=== PATIENT | male | born 1995 | race Caucasian/White ===

== ENCOUNTER 2016-12-27 19:43 | Emergency (ER) | payer MEDICAID, OTHER ==
[~2016-12-27] VITALS: Ht 180.3 cm; Wt 89.0 kg
[2016-12-27 19:48] VITALS: Ht 180.3 cm; Wt 89.0 kg
--- NOTE | 2016-12-27 20:54 | ERD ---
ER Documentation Chief Complaint Chief Complaint PT IN C/O "HEAD PAIN" R/T FALL. NOTED BLEEDING TO TOP OF HEAD. HPI 21-year-old male otherwise healthy presents under the influence of alcohol and is complaining of a head injury to the top of his head that occurred this afternoon. He admits to having up to 5 drinks today, and he reports that he "scraped his head" against the wall. There was a loss consciousness or vomiting. He denies neck pain, or any other medical complaints. ROS All systems reviewed and are negative except as per history of present illness. Allergies Allergies: Coded Allergies: No Known Allergy (Unverified , 12/27/16) PMhx/Soc Medical and Surgical Hx: pt denies Medical Hx, pt denies Surgical Hx Hx Alcohol Use: Yes Hx Substance Use: No Hx Tobacco Use: No Smoking Status: Never smoker Physical Exam Vitals Vital Signs Date Time Temp Pulse Resp B/P Pulse Ox O2 Delivery O2 Flow Rate FiO2 12/27/16 19:48 96.7 84 18 139/83 96 Physical Exam General smell of alcohol on his breath is present, patient is not in any acute distress. HEENT: Head is normocephalic, abrasion is superficial to the crown, there are no step-offs, no depressions hematoma. No scleral icterus. Pupils are equal, round, and reactive. \\ Neck: Supple. Nontender. Midline tenderness, no crepitus, patient has full range of motion of the neck. Lungs: Clear to auscultation. Normal air movement. Heart: Regular rate and rhythm. S1 and S2 are normal. No murmurs, gallops, or rubs. Abdomen: Soft, nontender, nondistended. Bowel sounds are normoactive. Extremities: No clubbing or cyanosis. Normal pulses. Moving extremities x 4. No weakness. Neurologic: Alert and oriented 3. No focal deficits. Skin: Normal turgor. No rash or lesions. Results 24 hrs DIAGNOSTIC IMAGING REPORT Patient: CHEN LEMOS : 1995 Age: 21 Sex: M MR #: [id number] DOS: 12/27/162014 Ordering MD: PRUDENCE MALDONADO PA-C Location: [facility] Room/Bed: PROCEDURE: CT Brain without contrast. CLINICAL INDICATION: Trauma due to a fall. Headache. TECHNIQUE: A CT of the brain without contrast was performed utilizing axial sections from the skull base through the vertex. The patient was scanned without intravenous contrast enhancement. Sagittal and coronal reformatted images were obtained using the data from the axial images. Total exam DLP is 720.23 mGy-cm. CTDIvol is 43.68 mGy. One or more of the following dose reduction techniques were used: Automated exposure control, adjustment of the mA and/or kV according to patient size, use of iterative reconstruction technique. DICOM images are available. COMPARISON: None available FINDINGS: There is normal rhodes-white matter differentiation. The ventricles and cisterns are normal. There is no intracranial hemorrhage or space-occupying lesion. There is no skull fracture or lytic lesion. IMPRESSION: 1. No intracranial hemorrhage. 2. Normal noncontrast CT scan of the brain. RPTAT: QQ .Jd Mclaughlin MD, MD Date Time Electronically viewed and signed by .Jd Mclaughlin MD, on 12/27/2016 21:05 .R/ CC: PRUDENCE MALDONADO PA-C Procedures/[facility] 21 year old male comes in with an abrasion on the top of the head, a superficial injury, but the patient presents under the influence of alcohol. CT head is unremarkable, no skull fracture, no intracranial hemorrhage. The patient is alert and oriented at this time, and will be taken home by his friend. I believe the patient can safely be discharged home, with observation and he is to return if he has any worsening symptoms including vomiting. Departure Diagnosis: Primary Impression: Acute head injury without loss of consciousness Additional Impressions: Abrasion, scalp w/o infection Alcohol intoxication Condition: Good PRUDENCE MALDONADO PA-C Dec 27, 2016 20:54
--- NOTE | 2016-12-27 21:05 | RADRPT ---
PROCEDURE: CT Brain without contrast. CLINICAL INDICATION: Trauma due to a fall. Headache. TECHNIQUE: A CT of the brain without contrast was performed utilizing axial sections from the skul l base through the vertex. The patient was scanned without intravenous contrast enhancement. Sagitta l and coronal reformatted images were obtained using the data from the axial images. Total exam DLP is 720.23 mGy-cm. CTDIvol is 43.68 mGy. One or more of the following dose reduction techniques we re used: Automated exposure control, adjustment of the mA and/or kV according to patient size, use o f iterative reconstruction technique. DICOM images are available. COMPARISON: None available FINDINGS: There is normal rhodes-white matter differentiation. The ventricles and cisterns are normal. There is no intracranial hemorrhage or space-occupying lesion. There is no skull fracture or lytic lesion. IMPRESSION: 1. No intracranial hemorrhage. 2. Normal noncontrast CT scan of the brain. RPTAT: QQ .Jd Mclaughlin MD, MD Date Time Electronically viewed and signed by .Jd Mclaughlin MD, on 12/27/2016 21:05 .R/
[2016-12-27 21:19] VITALS: BP 144/76; PULSE 96; RESP 16
== END 2016-12-27 21:19 | disposition home or self-care (01) ==
LOC: FTE 19:43
DX: S00.01XA Abrasion of scalp, initial encounter (principal); F10.129 Alcohol abuse with intoxication, unspecified; R51 Headache; W22.01XA Walked into wall, initial encounter; Y92.9 Unspecified place or not applicable
CPT/HCPCS: 70450; Z7502